=== PATIENT | male | born 1995 | race Hispanic/Latino ===

== ENCOUNTER 2017-05-25 21:44 | Emergency (ER) | payer BC, SELFPAY ==
[2017-05-25] MEDS ORDERED: Diazepam 5 MG TAB ONE (22:34)
[2017-05-25] MEDS ORDERED: Ketorolac Tromethamine 60 MG/2 ML VIAL ONE (22:34)
--- NOTE | 2017-05-25 23:03 | RAD ---
LUMBAR SPINE: 05/25/17 Three views. HISTORY: Back pain. Lumbar vertebra maintain normal height and alignment. No evidence of spondylolisthesis or spondylolys is. The disc spaces are maintained. IMPRESSION: Unremarkable lumbar spine. POS: [facility]
== END 2017-05-26 00:01 | disposition home or self-care (01) ==
LOC: ERS 21:44
DX: M54.5 Low back pain (principal); X50.1XXA Overexertion from prolonged static or awkward postures, initial encounter
CPT/HCPCS: 72100; 96372; J1885